=== PATIENT | male | born 1970 | race American Indian/Alaskan Native ===

== ENCOUNTER 2017-01-21 06:56 | Day surgery (SDC) | payer OTHER ==
[~2017-01-21 06:56] MED LIST: ANCEF/STERILE WATER 2 GM/20 ML 2 GM/20 ML SYRINGE IV NR; DECADRON IM ONE; MARCAINE 0.25% INFILTRATI ONE
[2017-01-21] MEDS ORDERED: ANTIBIOTIC OINT TP ONE ×3 (07:20→09:56)
[2017-01-21] MEDS ORDERED: MARCAINE 0.25% INFILTRATI ONE ×2 (07:21→08:55)
[2017-01-21] MEDS ORDERED: DECADRON ONE (07:21)
[2017-01-21] MEDS ORDERED: XYLOCAINE 1% MPF 5 mL ONE (07:22)
[2017-01-21] MEDS ORDERED: DILAUDID ONE (07:49)
[2017-01-21] MEDS ORDERED: DIPRIVAN 10 MG/ML IV ONE ×4 (07:49→09:35)
[2017-01-21] MEDS ORDERED: XYLOCAINE MPF 2% ONE (07:50)
[2017-01-21 07:52] VITALS: BP 137/98
--- NOTE | 2017-01-21 08:02 | Anesthesia Day of Surgery ---
Anesthesia Day of Surgery - Day of Surgery Patient Examined: Yes Patient H&P Reviewed: Yes Patient is NPO: Yes
--- NOTE | 2017-01-21 08:02 | Anesthesia Consultation ---
Anesthesia Consult and Med Hx Date of service: 01/21/17 - Airway Anesthetic Teeth Evaluation: Poor, Chipped (front and right rear) ROM Head & Neck: Adequate Mental/Hyoid Distance: Adequate Mallampati Class: Class II Intubation Access Assessment: Probably Good - Pulmonary Exam CTA: Yes - Cardiac Exam Cardiac Exam: RRR - Pre-Operative Health Status ASA Pre-Surgery Classification: ASA2 Proposed Anesthetic Plan: General - Pulmonary Hx Smoking: Yes (1/2-1 PPD X 12 YRS) Hx Sleep Apnea: No ([place] PRE SCREEN LOW RISK.) - Cardiovascular System Hx Hypertension: No Hx Pacemaker: No Hx Internal Defibrillator: No - Other Systems Hx Cancer: No - Additional Comments Anesthesia Medical History Comments: Has had high blood pressure the past few months but is not on any meds. Has gout but only takes meds when it flairs up. None taken since last month. Currently has a cold with phlegm.
[2017-01-21] MEDS ORDERED: XYLOCAINE 1% 20 mL INFILTRATI ONE (08:55)
[2017-01-21] MEDS ORDERED: NACL 0.9% 1000 ML 1,000 ML IV SCH (09:00)
[2017-01-21] MEDS ORDERED: PEPCID IV NR (09:00)
[2017-01-21] MEDS ORDERED: TORADOL ONE (09:00)
[2017-01-21] MEDS ORDERED: VERSED IV NR (09:00)
[2017-01-21] MEDS ORDERED: ZOFRAN ONE (09:00)
[2017-01-21] MEDS ORDERED: ROBINUL ONE (09:00)
[2017-01-21] MEDS ORDERED: NACL 0.9% 1000 ML 1,000 ML ONE (09:44)
[2017-01-21] MEDS ORDERED: DECADRON IM ONE (09:56)
--- NOTE | 2017-01-21 10:39 | XRay Report ---
LEFT FOOT, 2 views: History: Left foot bunionectomy Recent bunionectomy changes in the distal first metatarsal are noted and in good alignment. 2 orthopedic screws are noted in this area. There is surrounding soft tissue swelling and gas consistent with recent surgery. The remaining bony structures and joint spaces of the right foot are intact. IMPRESSION: Surgical changes in the distal first metatarsal.
[2017-01-21] MEDS ORDERED: TORADOL IV ONE (11:00)
--- NOTE | 2017-02-05 21:22 | Operative Report ---
PREOPERATIVE DIAGNOSIS: Painful bunion with gout, left foot. POSTOPERATIVE DIAGNOSIS: Painful bunion with gout, left foot. SURGICAL PROCEDURE: Bunionectomy right foot with debridement of gouty tissue. DESCRIPTION OF PROCEDURE: At this time, with use of 10 mL of 1:1 mixture of 1% lidocaine plain plus 0.5% Marcaine plain, was infiltrated into the affected site after cleaned with Betadine solution alcohol, and a well-padded pneumatic ankle tourniquet was placed 2-3 cm proximally and laterally to the medial malleoli. At this time, the foot was then scrubbed, prepped and draped in the usual aseptic manner and the procedure was thus initiated. At this time, an Esmarch was used to exsanguinate the foot to 250 mmHg, and attention was directed to the medial aspect of the left first metatarsophalangeal joint, in which 6 cm linear and longitudinal incision was thus made with care being taken to protect all vital neurovascular structures as needed. At this time, the dissection carried deep down to the capsular tissues and was immediately noted white chalky tissue, which was consistent with the findings for gouty arthritis. At this time, tissues were thus removed to be passed, to be sent to the laboratory for further diagnosis and evaluation. At this time, attention was redirected to the first metatarsophalangeal joint, in which the medial shelf was thus transected of the metatarsal head along with the base on the medial aspect of the proximal phalanx, and at this time, the dorsal aspect of the first metatarsal head was thus transected 2 mm width. The osteotomy was thus performed with the use of standard AO techniques. Two cannulated screws were placed across the affected site and it was noted to be good stability, and all redundant bone and tissue were removed without incident. The area was flushed copiously with normal sterile saline and the toe was held in a more corrected position, and deep capsular closure was performed with 3-0 Vicryl followed by superficial closure with 3-0 and 4-0 Vicryl. At this time, subcuticular closure was performed with 4-0 Prolene, and 1 mL of dexamethasone phosphate was infiltrated into the affected site. Steri-Strips were applied followed by bacitracin ointment and sterile compressive dressing. The patient's pneumatic ankle tourniquet was deflated. A prompt hyperemic response was noted to all digits of the affected area. The patient tolerated procedure and anesthesia well, and will be transferred home with both written and oral postop instructions. JOB# [id number] JOCELYNE/KILLIAN
== END 2017-01-21 06:57 | disposition home or self-care (01) ==
LOC: OR 06:56
PROVIDERS: ATTEND Podiatrist Foot & Ankle Surgery
DX: M21.612 Bunion of left foot (principal); M10.9 Gout, unspecified; M20.42 Other hammer toe(s) (acquired), left foot; F17.210 Nicotine dependence, cigarettes, uncomplicated
CPT/HCPCS: 88304; 88311; C1713; C1769; J0690; J1100; J1170; J1885; J2250; J2405; J2704; J7030